=== PATIENT | female | born 1990 | race Caucasian/White ===

== ENCOUNTER 2016-10-17 20:06 | Emergency (ER) | payer MEDICAID | END 2016-10-17 22:00 | disposition left against medical advice (07) | LOC: D.ER 20:06 | DX: R10.9 Unspecified abdominal pain (principal) ==

== ENCOUNTER 2018-02-24 21:22 | Outpatient (CLI) | payer MEDICAID ==
[2018-02-24 22:48] LABS: COLOR YELLOW (YELLOW); UDS - AMPHET NEGATIVE QUAL (NEGATIVE); UDS - BARB NEGATIVE QUAL (NEGATIVE); UDS - BENZO NEGATIVE QUAL (NEGATIVE); UDS - COCAINE NEGATIVE QUAL (NEGATIVE); UDS - OPIATE NEGATIVE QUAL (NEGATIVE); UDS - PCP NEGATIVE QUAL (NEGATIVE); UDS - THC POSITIVE QUAL (NEGATIVE)
[2018-02-24 22:49] LABS: APPEARANCE CLEAR (CLEAR); BACTERIA FEW /hpf (NONE SEEN); BILIRUBIN NEGATIVE (NEGATIVE); EPITHELIAL CELLS 0-5 /hpf (0-5); GLUCOSE NEGATIVE (NEGATIVE); KETONE MODERATE mg/dL (NEGATIVE); NITRITE NEGATIVE (NEGATIVE); PROTEIN NEGATIVE (NEGATIVE); RED CELLS - URINE NONE SEEN /hpf (0-5); SPECIFIC GRAVITY 1.015 (1.005-1.020); UROBILINOGEN NORMAL (NORMAL); WHITE CELLS - URINE 0-5 /hpf (0-5)
[2018-02-26 18:30] VITALS: BMI 28.4
== END 2018-02-24 23:15 | disposition home or self-care (01) ==
LOC: D.LDO 21:22 → D.WS 23:11 → D.LDO 23:15
PROVIDERS: Obstetrics & Gynecology
DX: O26.893 Other specified pregnancy related conditions, third trimester (principal); Z3A.36 36 weeks gestation of pregnancy

== ENCOUNTER 2018-02-26 17:43 | Inpatient (IN) | payer MEDICAID ==
[~2018-02-26] VITALS: Ht 157.5 cm; Wt 70.3 kg
[2018-02-26 18:24] LABS: APPEARANCE CLEAR (CLEAR); BILIRUBIN NEGATIVE (NEGATIVE); COLOR YELLOW (YELLOW); GLUCOSE 50 mg/dL (NEGATIVE); KETONE SMALL mg/dL (NEGATIVE); NITRITE NEGATIVE (NEGATIVE); PROTEIN 2+ mg/dL (NEGATIVE); UROBILINOGEN NORMAL (NORMAL)
[2018-02-26 18:30] VITALS: BP 138/86; Ht 157.5 cm; Wt 70.3 kg
[2018-02-26 18:33] LABS: BACTERIA MANY /hpf (NONE SEEN); EPITHELIAL CELLS 0-5 /hpf (0-5); MUCUS <1+ /lpf (NONE SEEN)
[2018-02-26 18:34] LABS: AMORPHOUS SEDIMENT <1+ /lpf (NONE SEEN); HYALINE CAST 0-5 /lpf (NONE SEEN)
[2018-02-26 18:46] LABS: UDS - AMPHET NEGATIVE QUAL (NEGATIVE); UDS - BARB NEGATIVE QUAL (NEGATIVE); UDS - BENZO NEGATIVE QUAL (NEGATIVE); UDS - COCAINE NEGATIVE QUAL (NEGATIVE); UDS - OPIATE NEGATIVE QUAL (NEGATIVE); UDS - PCP NEGATIVE QUAL (NEGATIVE); UDS - THC POSITIVE QUAL (NEGATIVE)
[2018-02-26 19:22] LABS: HEMATOCRIT 26.7 % (36.0-48.0); HEMOGLOBIN 8.8 g/dL (12-16); MCH 30.7 pg (26.0-34.0); MEAN PLATELET VOLUME 9.9 fL (7.4-10.4); RBC 2.87 10x6/uL (4.00-5.40); RDW 13.8 % (11.5-14.5); WBC 14.7 10x3/uL (4.8-10.8)
[2018-02-27] VITALS (7 sets, daily range): BP systolic 115–146; BP diastolic 83–90
[2018-02-27 21:35] LABS: HEMATOCRIT 28.6 % (36.0-48.0); HEMOGLOBIN 9.3 g/dL (12-16); MCH 30.4 pg (26.0-34.0); MCHC 32.5 g/dL (31.0-37.0); MCV 93.5 fL (80.0-100.0); MEAN PLATELET VOLUME 9.7 fL (7.4-10.4); PLATELET COUNT 231 10x3/uL (130-400); RBC 3.06 10x6/uL (4.00-5.40); RDW 13.7 % (11.5-14.5)
[2018-02-27 22:54] LABS: EOSINOPHILS 3 % (0-7); LYMPHOCYTES 3 % (15-50); MONOCYTES 3 % (2-11); NEUTROPHILS 91 % (40-80); PLATELET ESTIMATE NORMAL
[2018-02-28 00:23] VITALS: BP 117/69
[2018-02-28 04:30] VITALS: BP 108/74
[2018-02-28 06:42] LABS: BASOPHILS 0.1 % (0-2); EOSINOPHILS 0.1 % (0-7); HEMATOCRIT 25.5 % (36.0-48.0); HEMOGLOBIN 8.7 g/dL (12-16); IMMATURE GRANULOCYTES 0.4 % (0-5); LYMPHOCYTES 9.7 % (15-50); MCH 31.6 pg (26.0-34.0); MCHC 34.1 g/dL (31.0-37.0); MCV 92.7 fL (80.0-100.0); MONOCYTES 9.9 % (2-11); NEUTROPHILS 79.8 % (40-80); PLATELET COUNT 223 10x3/uL (130-400); RBC 2.75 10x6/uL (4.00-5.40); WBC 20.1 10x3/uL (4.8-10.8)
[2018-02-28 07:27] LABS: RAPID PLASMA REAGIN Non Reactive (Non Reactive)
[2018-02-28 14:00] VITALS: BP 136/74
[2018-02-28 23:30] VITALS: BP 132/75
[2018-03-01 04:55] LABS: BASOPHILS 0.1 % (0-2); EOSINOPHILS 0.5 % (0-7); HEMOGLOBIN 7.6 g/dL (12-16); IMMATURE GRANULOCYTES 0.5 % (0-5); LYMPHOCYTES 13.2 % (15-50); MCH 30.5 pg (26.0-34.0); MCV 92.4 fL (80.0-100.0); MEAN PLATELET VOLUME 9.8 fL (7.4-10.4); MONOCYTES 10.5 % (2-11); NEUTROPHILS 75.2 % (40-80); PLATELET COUNT 246 10x3/uL (130-400); RBC 2.49 10x6/uL (4.00-5.40); RDW 14.1 % (11.5-14.5)
[2018-03-01 05:02] LABS: WBC 14.4 10x3/uL (4.8-10.8)
[2018-03-01 08:56] VITALS: BP 130/81
[2018-03-01 10:20] VITALS: BP 126/83
[2018-03-01 10:35] VITALS: BP 128/64
[2018-03-01 12:00] VITALS: BP 122/83
[2018-03-01 14:15] VITALS: BP 127/76
[2018-03-01] MEDS ORDERED: IBUPROFEN600 MG PO (16:17)
[2018-03-01] MEDS ORDERED: NORCO 10-325 TA1 TAB PO (16:17)
== END 2018-03-01 16:57 | disposition home or self-care (01) | DRG 786 ==
LOC: D.LDO 17:43 → D.LD 18:32 → D.WS 18:32 → D.LD 02-28 16:31
PROVIDERS: Obstetrics & Gynecology
PROC: 10D00Z1 Extraction of Products of Conception, Low, Open Approach (ICD-10-PCS; principal; 2018-02-27 15:30)
DX: O62.1 Secondary uterine inertia (principal); O60.14X0 Preterm labor third trimester with preterm delivery third trimester, not applicable or unspecified; Z3A.36 36 weeks gestation of pregnancy; Z37.0 Single live birth

== ENCOUNTER 2019-07-25 05:37 | Inpatient (IN) | payer MEDICAID ==
[2019-07-25] VITALS (16 sets, daily range): BP systolic 107–137; BP diastolic 61–83; Ht 157.5 cm; Wt 74.8 kg
[~2019-07-25] VITALS: Ht 157.5 cm; Wt 74.8 kg
[~2019-07-25 05:37] MED LIST: IBUPROFEN600 MG PO; NORCO 10-325 TA1 TAB PO
[2019-07-25 07:03] LABS: HEMATOCRIT 29.9 % (36.0-48.0); HEMOGLOBIN 9.4 g/dL (12-16); MCH 29.9 pg (26.0-34.0); MCHC 31.4 g/dL (31.0-37.0); MCV 95.2 fL (80.0-100.0); MEAN PLATELET VOLUME 10.7 fL (7.4-10.4); RBC 3.14 10x6/uL (4.00-5.40); RDW 14.8 % (11.5-14.5); WBC 13.1 10x3/uL (4.8-10.8)
[2019-07-25 07:40] LABS: UDS - AMPHET NEGATIVE QUAL (NEGATIVE); UDS - BARB NEGATIVE QUAL (NEGATIVE); UDS - BENZO NEGATIVE QUAL (NEGATIVE); UDS - COCAINE NEGATIVE QUAL (NEGATIVE); UDS - OPIATE NEGATIVE QUAL (NEGATIVE); UDS - PCP NEGATIVE QUAL (NEGATIVE); UDS - THC NEGATIVE QUAL (NEGATIVE)
[2019-07-25 07:48] LABS: BASOPHILS 0.2 % (0-2); EOSINOPHILS 0.9 % (0-7); HEMATOCRIT 29.6 % (36.0-48.0); HEMOGLOBIN 9.4 g/dL (12-16); IMMATURE GRANULOCYTES 0.6 % (0-5); LYMPHOCYTES 19.2 % (15-50); MCH 30.2 pg (26.0-34.0); MCHC 31.8 g/dL (31.0-37.0); MCV 95.2 fL (80.0-100.0); MEAN PLATELET VOLUME 10.5 fL (7.4-10.4); MONOCYTES 9.4 % (2-11); NEUTROPHILS 69.7 % (40-80); PLATELET COUNT 288 10x3/uL (130-400); RBC 3.11 10x6/uL (4.00-5.40); RDW 14.8 % (11.5-14.5); WBC 13.3 10x3/uL (4.8-10.8)
--- NOTE | 2019-07-25 09:40 | NUR ---
to room 1273 via bed from rr. awake and alert. denies pain.fundus uu/firm. mod lochia noted on pad- no clots. ice cap to incision.
--- NOTE | 2019-07-25 09:45 | NUR ---
DILAUDID LINE ERECTOR SETUP AND INSTRUCTED PT ON USE- 0.2MG Q10MIN.
--- NOTE | 2019-07-25 10:11 | NUR ---
FUNDUS UU/FIRM. SCANT LOCHIA NOTED ON PAD. IN MOTHERS ARMS.
--- NOTE | 2019-07-25 10:21 | NUR ---
SCD PUMP ON. PT TALKING WITH VISITORS. DENIES NEEDS. SMALL LOCHIA NOTED ON PAD.
--- NOTE | 2019-07-25 10:53 | NUR ---
SITTING UP IN BED HOLDING INFANT. NUMEROUS VISITORS AT BEDSIDE. SOME VISITORS LEFT ROOM. ABD SOFT. FUNDUS UU/FIRM. SM TO MOD LOCHIA NOTED ON PAD. NO CLOTS- PADS CHANGED. PT STATES THAT STARTING TO HURT AND USING SCHOOL LIBRARIAN NEEDED. MHR DECREASES TO 105 TO 110 WITH SOME VISITORS OUT OF ROOM.
--- NOTE | 2019-07-25 11:11 | NUR ---
TORADOL GIVEN FOR PAIN. DENIES OTHER NEEDS.
--- NOTE | 2019-07-25 11:46 | NUR ---
STATES PAIN IS BETTER POST TORADOL. FUNDUS UU/FIRM. SMALL LOCHIA NOTED ON PAD.
--- NOTE | 2019-07-25 12:37 | NUR ---
NOTED MHR CONT 120'S. FUNDUS UU/FIRM- SMALL LOCHIA NOTED ON PAD. STATES THAT SHE FEELS LIKE HR UP WITH PAIN. USING VOICE SYSTEMS ENGINEER NEEDED.
--- NOTE | 2019-07-25 12:44 | NUR ---
REPORT OF MHR TO DR ALLEN- NEW ORDERS RECEIVED.
--- NOTE | 2019-07-25 13:00 | NUR ---
LAB HERE FOR CBC. FUNDUS U1/FIRM. SM TO MOD LOCHIA NOTED ON PADS UNDERNEATH WITH SMALL CLOT X 1. PT RATES PAIN A 7 ON SCALE OF 0-10. Bubba ORTEGA RN ALSO IN ROOM. MANAGER PIPELINE BOLUS OF DILAUDID 0.4 MG GIVEN. PT EATING ICE CHIPS AND SIPPING ON LEMON TELIDA FANNIE.
[2019-07-25 13:06] LABS: BASOPHILS 0.1 % (0-2); EOSINOPHILS 0.3 % (0-7); HEMATOCRIT 28.1 % (36.0-48.0); IMMATURE GRANULOCYTES 0.6 % (0-5); LYMPHOCYTES 11.5 % (15-50); MCH 30.6 pg (26.0-34.0); MCV 95.6 fL (80.0-100.0); MEAN PLATELET VOLUME 10.3 fL (7.4-10.4); MONOCYTES 7.2 % (2-11); NEUTROPHILS 80.3 % (40-80); RBC 2.94 10x6/uL (4.00-5.40); RDW 14.7 % (11.5-14.5)
[2019-07-25 13:10] LABS: PLATELET COUNT 222 10x3/uL (130-400); WBC 16.5 10x3/uL (4.8-10.8)
--- NOTE | 2019-07-25 13:40 | NUR ---
CBC RESULTS RETURNED- HGB 9 AND HCT 28. EKG S TACH OTHERWISE NORMAL.
--- NOTE | 2019-07-25 15:00 | NUR ---
INFANT TO MOTHER BY THIS RN. BANDS VERIFIED TO MATCH. MOTHER IS AAOx3, LYING SUPINE IN BED. INFANT RESTING IN WAKEFUL STATE IN [place] AT BEDSIDE. SWADDLED WITH HAT ON, PACIFIER IN USE. NO DISTRESS NOTED. MOTHER'S CALL LIGHT IN REACH, DENIES NEEDS AT THIS TIME.
--- NOTE | 2019-07-25 15:10 | NUR ---
MOVING SELF ABOUT IN BED. INCENTIVE PAIGE USED. DENIES NEEDS.
--- NOTE | 2019-07-25 16:28 | NUR ---
SALES ORDER SPECIALIST SYRINGE CHANGED OUT. PT POSITIONS SELF TO RT SIDE. SCANT LOCHIA NOTED ON PAD.
--- NOTE | 2019-07-25 18:00 | NUR ---
THIS RN TO ROOM FOR PT CHECK. FF, ML, U/2. SCANT TO SMALL RUBRA LOCHIA NOTED TO PERIPAD, NO CLOTS. PERIPAD CHANGED. 80ML CLEAR YELLOW URINE NOTED IN HERNANDEZ UROMETER. PT C/O PAIN RATED 9/10 AT ABD INCISION. DRESSING NOTED TO HAVE SMALL AMOUNT RED DRAINAGE BENEATH IT AT INCISION SITE. DRESSING BORDERS MARKED WITH PEN. WILL ADMIN PRN TORADOL FOR PAIN, REFILL ICE PACK, AND GET ICE WATER PER PT REQUEST.
--- NOTE | 2019-07-25 18:13 | NUR ---
TORADOL ADMIN, NEW ICE PACK TO ABD, NEW ICE WATER GIVEN.
--- NOTE | 2019-07-25 18:22 | NUR ---
SITTING UP IN BED. MED GIVEN. DENIES NEEDS.
--- NOTE | 2019-07-25 18:36 | NUR ---
report of mhr,lab results ecg to dr welch in unit - new orders received.
--- NOTE | 2019-07-25 19:01 | NUR ---
REPORT TO PM SHIFT.
--- NOTE | 2019-07-25 19:22 | NUR ---
VSS. PT STATES PAIN IS 2/10 TO ABDOMINAL INCISION AREA. FUNDUS FIRM, MIDLINE, 2 BELOW, SCANT RUBRA LOCHIA NOTED ON EMILY PAD. PT'S FAMILY AT BEDSIDE, PT HOLDING INFANT BONDING. PT STATES HER NEEDS HAVE BEEN MET CURRENTLY, SHE WILL CALL OUT IF SHE NEEDS ANYTHING. BED IN LOWEST POSITION, SIDE RAILS UP X2, CALL LIGHT IN REACH.
--- NOTE | 2019-07-25 19:26 | NUR ---
SHIFT ASSESSMENT COMPLETED AT THIS TIME, PT SITTING UP IN BED HOLDING , HERNANDEZ DRAINING TO GRAVITY, IV CONTINUES WITH NS WITH 20U PITOCIN AT 125ML/HR. NO INFILTRATION NOTED, LR BOLUS STARTED AT THIS TIME PER MD ORDERS. LOW TRANSVERSE INCISION COVERED WITH DRESSING. TWO SMALL SPOT OF DRAINAGE NOTED AND MARKED. ICE PACK IN PLACE. TEACHING ON INCENTIVE SPIROMETER AND TURN,DEEP BREATHE AND COUGHING COMPLETED AND PT VERBALIZES UNDERSTANDING.
--- NOTE | 2019-07-25 19:55 | NUR ---
PATIENT REQUESTS A NURSERY NURSE TO LOOK AT HER BABY BECAUSE MOTHER STATES THAT THE BABY SNORTED A FEW TIMES WHEN SHE WAS SUCKING ON HER PACIFIER. THIS RN EXAMINED INFANT AND NO DISTRESS NOTED AT THIS TIME. TY MONK CALLED AND NOTIFIED
--- NOTE | 2019-07-25 20:38 | NUR ---
PT SITTING UP IN BED, DENIES NEEDS AT THIS TIME. SIGNIFICANT OTHER AT BEDSIDE FOR SUPPORT. WILL CONTINUE TO MONITOR
--- NOTE | 2019-07-25 21:30 | NUR ---
FRESH ICE PACK PROVIDED PER PT REQUEST. NO FURTHER NEEDS IDENTIFIED, SIGNIFICANT OTHER REMAINS AT BEDSIDE FOR SUPPORT. WILL CONTINUE TO MONITOR
--- NOTE | 2019-07-25 22:32 | NUR ---
PATIENTS HERNANDEZ CATHETER EMPTIED AT THIS TIME, SEE I+O FLOWSHEET
[2019-07-26] VITALS (11 sets, daily range): BP systolic 105–130; BP diastolic 63–78
--- NOTE | 2019-07-26 00:30 | NUR ---
PERICARE PERFORMED, SCANT RUBRA BLEEDING NOTED. FUNDUS FIRM U-1. PAD CHANGED. HERNANDEZ CATHETER REMAINS DRAINING TO GRAVITY. BED LOCKED IN LOW POSIITON, SIDE RAILS UPX2, CALL ROMERO AND TRAY TABLE IN REACH. WILL CONTINUE TO MONITOR.
--- NOTE | 2019-07-26 02:30 | NUR ---
PATIENT LYING IN BED ON HER RIGHT SIDE, NO NEEDS IDENTIFIED. HERNANDEZ REMAINS DRAINING TO GRAVITY. SEE I+O FLOWSHEET.
--- NOTE | 2019-07-26 06:30 | NUR ---
pericare performed, clean pad placed. acuña catheter emptied. see i+o flowsheet
--- NOTE | 2019-07-26 06:41 | NUR ---
toradol and zofran administered per pt request. see emar
[2019-07-26 06:49] LABS: BASOPHILS 0.2 % (0-2); EOSINOPHILS 0.7 % (0-7); HEMATOCRIT 25.1 % (36.0-48.0); HEMOGLOBIN 8.1 g/dL (12-16); IMMATURE GRANULOCYTES 0.3 % (0-5); LYMPHOCYTES 13.2 % (15-50); MCH 30.8 pg (26.0-34.0); MCHC 32.3 g/dL (31.0-37.0); MCV 95.4 fL (80.0-100.0); MONOCYTES 9.3 % (2-11); NEUTROPHILS 76.3 % (40-80); PLATELET COUNT 223 10x3/uL (130-400); RBC 2.63 10x6/uL (4.00-5.40); RDW 14.9 % (11.5-14.5)
[2019-07-26 06:54] LABS: WBC 10.7 10x3/uL (4.8-10.8)
--- NOTE | 2019-07-26 07:24 | NUR ---
assessment done. awake and alert. verbal responses appro to questions. iv of pitocin 20 units in 1000cc ns hanging and infusing into lt wrist at 125cc/hr. staff radiologist dilaudid infusing into this- settings 0.2mg q10min. o2 sat 88-94- encouraged to take deep breaths and up to 94. incentive jaiden used. fundus uu with scant lochia noted on pad. abd dressing intact. scds on. acuña cath with clear pale yellow urine. denies needs. states is hungry this morning.
[2019-07-26 07:52] LABS: RAPID PLASMA REAGIN Non Reactive (Non Reactive)
--- NOTE | 2019-07-26 07:58 | NUR ---
DR ALLEN IN UNIT- STATES HE WILL SEE HER SHORTLY. INFORMED OF AM CBC, O2 SAT. NEW ORDER RECEIVED.
--- NOTE | 2019-07-26 08:46 | NUR ---
sitting up in bed talking with . informed that dr araiza ordered unit prbc. pt denies questions.
--- NOTE | 2019-07-26 09:15 | NUR ---
DR ALLEN IN ROOM- POC DISCUSSED WITH PT. ASHLEE PIT D/C ALONG WITH SANDRA ROSADO. TONYA HUNG AT 50CC/HR FOR PRBC TRANSFUSION.
--- NOTE | 2019-07-26 09:32 | NUR ---
UNIT PRBC A+ DONOR # [id number] HUNG AND INFUSING THRU BLOOD TRANSFUSION TUBING- STARTED AT 75CC/HR AT THIS TIME.
--- NOTE | 2019-07-26 10:05 | NUR ---
NORCO GIVEN FOR CO HEADACHE AND INCISIONAL PAIN. RATES PAIN A 7 ON SCALE OF 0-10. NO S/S OF TRANSFUSION REACTION.
--- NOTE | 2019-07-26 10:06 | NUR ---
TRANSFUSION RATE INCREASED TO 125CC/HR.
--- NOTE | 2019-07-26 11:13 | NUR ---
PERICARE DONE AND PARTIAL LINEN CHANGE DONE. NO S/S OF TRANSFUSION REACTION NOTED.
--- NOTE | 2019-07-26 11:50 | NUR ---
UNIT PRBC FINISHED INFUSING LINE FLUSHED WITH NS.
--- NOTE | 2019-07-26 12:50 | NUR ---
ATE 100% OF REG DIET. STATES FEELS SO MUCH BETTER. IV CHANGED TO SALINE LOCK AND HERNANDEZ CATH REMOVED POST BULB DEFLATED WITH 1700CC URINE IN BAG.
--- NOTE | 2019-07-26 13:12 | NUR ---
STATES THAT HEADACHE IS GONE. REQUESTS MOTRIN FOR INCISIONAL PAIN. DENIES OTHER NEEDS.
--- NOTE | 2019-07-26 13:30 | NUR ---
STATES WANTS TO NAP- LIGHTS IN ROOM DIM.
[2019-07-26 14:15] LABS: BASOPHILS 0.1 % (0-2); HEMATOCRIT 26.2 % (36.0-48.0); HEMOGLOBIN 8.5 g/dL (12-16); IMMATURE GRANULOCYTES 0.4 % (0-5); LYMPHOCYTES 14.1 % (15-50); MCH 30.1 pg (26.0-34.0); MCHC 32.4 g/dL (31.0-37.0); MEAN PLATELET VOLUME 9.4 fL (7.4-10.4); MONOCYTES 6.8 % (2-11); NEUTROPHILS 77.6 % (40-80); PLATELET COUNT 203 10x3/uL (130-400); RBC 2.82 10x6/uL (4.00-5.40); RDW 15.9 % (11.5-14.5); WBC 10.5 10x3/uL (4.8-10.8)
[2019-07-26 14:22] LABS: MCV 92.9 fL (80.0-100.0)
--- NOTE | 2019-07-26 15:15 | NUR ---
AWAKE AND FEEDING INFANT.
--- NOTE | 2019-07-26 15:34 | NUR ---
RINGS CALL LIGHT STATES NEEDS TO VOID. AMBUULATORY TO BATHROOM- TOLERATED WELL. VOIDED 500CC- EMILY CARE DONE. RETURNS TO BED.
--- NOTE | 2019-07-26 15:36 | NUR ---
REQUESTING PAIN MEDICATION- CO PAIN AT INCISION WITH "GETTING UP" REQUESTS PAIN MEDICATION- RATES PAIN AN 8 ON SCALE OF 0-10.
--- NOTE | 2019-07-26 16:02 | NUR ---
C/O ABD AND INCISIONAL DISCOMFORT. 01/05. NORCO GIVEN PER ORDER AND PT REQUEST. ICE WATER PROVIDED. HOLDING INFANT IN ARMS. BED IN LOW POSITION WITH SRUP X2. CALL LIGHT AND PHONE WITHIN REACH.
--- NOTE | 2019-07-26 19:50 | NUR ---
REPORT GIVEN BY TY MILES
--- NOTE | 2019-07-26 19:50 | NUR ---
REPORT FROM TY MILES
--- NOTE | 2019-07-26 20:22 | NUR ---
PT REQUESTED PAIN MEDS. P0 MEDS GIVEN. PT IS LOVING ON HER BABY AT THIS TIME. DAD JUST ARRIVED.
--- NOTE | 2019-07-26 20:30 | NUR ---
ASSESSMENT COMPLETED. PT IS UP AND ABOUT IN ROOM. SHE WAS C/O OF PAIN SO SHE GOT A PERCOCET AT 2020 WELL A MOTRIN. SKIN IS WARM AND DRY. HEART SOUNDS ARE WNL. LUNGS CLEAR. BOWEL SOUNDS HEARD. fUNDUS IS FIRM AND LOCHIA IS SMALL. PT IS VOIDING WELL WITHOUT PROBLEM. BABY IS IN THE ROOM WELL PT .
--- NOTE | 2019-07-26 22:00 | NUR ---
PT DOING WELL WITH NO C/O.
[2019-07-27 00:03] VITALS: BP 126/81
--- NOTE | 2019-07-27 00:15 | NUR ---
PT C/O PAIN AT INCISION SITE.
--- NOTE | 2019-07-27 00:20 | NUR ---
PERCOCET WAS GIVEN PO FOR PAIN. PT STATES SHE IS GOING TO FEED THE BABY AND THEN GO TO SLEEP.
--- NOTE | 2019-07-27 02:00 | NUR ---
PT IS ASLEEP. BABY AND BOTH SLEEPING WELL.
--- NOTE | 2019-07-27 04:00 | NUR ---
PT AND FAMILY ARE SOUND ASLEEP. DID NOT WAKE FOR VS
--- NOTE | 2019-07-27 06:12 | NUR ---
PT C/O PAIN AT A 10 LEVEL. SHE WAS GIVEN PO PAIN MEDS.
[2019-07-27 07:35] VITALS: BP 140/67
--- NOTE | 2019-07-27 07:41 | NUR ---
AM ASSESSMENT COMPLETED, PRN IBUPROFEN GIVEN FOR CONTINUED C/O INCISIONAL PAIN RATED 8/10 0N NUMERIC PAIN SCALE. PT DOES COMPLAIN OF "STUFFY NOSE" THIS AM BUT RESOLVES SOMEWHAT WITH POSITION CHANGE TO SIT UPRIGHT DURING ASSESSMENT. REVIEWED PLAN OF CARE FOR THE DAY, QUESTIONS ANSWERED, CALL LIGHT PLACED WITHIN EASY REACH OF PT, IN ROLLING CRIB ADJACENT TO BED, NAD NOTED WITH OR PT. PROVIDED CUP OF ICE WATER PER REQUEST, NO OTHER NEEDS VOICED AT THIS TIME. WILL CONTINUE TO MONITOR.
--- NOTE | 2019-07-27 08:30 | NUR ---
PAIN REASSESSMENT COMPLETED, NAD NOTED, PAIN NOW 5-6 ON NUMERIC PAIN SCALE PER PT REPORT, PT SMILING AND AMBULATORY IN ROOM. CALL LIGHT ON BST ADJACENT TO PT BED. WILL MONITOR.
[2019-07-27] MEDS ORDERED: HYDROCODON-ACE1 EA10 PO (09:18)
[2019-07-27] MEDS ORDERED: MOTRIN600 MG PO (09:19)
--- NOTE | 2019-07-27 09:45 | NUR ---
DISCHARGE INSTRUCTIONS REVIEWED WITH PT, HANDOUTS PROVIDED FOR REVIEW AT HOME, QUESTIONS ANSWERED, PT STATES UNDERSTANDING OF ALL INFORMATION PROVIDED AT THIS TIME. WILL MONITOR.
--- NOTE | 2019-07-27 10:39 | NUR ---
PT C/O INCISIONAL PAIN RATED 8 OF 10 ON NUMERIC PAIN SCALE, REQUESTS PRN MED; SAME PROVIDED. SALINE LOCK TO LEFT WRIST DISCONTINUED, CATHETER TIP INTACT, PRESSURE DRESSING APPLIED USING GAUZE AND SILK TAPE. PT DENIES OTHER NEEDS OR CONCERNS AT THIS TIME. WILL MONITOR.
--- NOTE | 2019-07-27 11:15 | NUR ---
rounds completed, pain reassessment 4/10 on numeric pain scale, ambulatory in pt room. call light in easy reach.
--- NOTE | 2019-07-27 12:37 | NUR ---
patient discharged via wheelchair with infant secured in carrier to private auto with all personal belongings, nad noted at this time.
== END 2019-07-27 12:37 | disposition home or self-care (01) | DRG 788 ==
LOC: D.LD 05:37 → D.SDCHOLD 07:30 → D.LD 07-27 12:37
PROVIDERS: ADMIT Obstetrics & Gynecology; ATTEND Obstetrics & Gynecology
PROC: 10D00Z1 Extraction of Products of Conception, Low, Open Approach (ICD-10-PCS; principal; 2019-07-25 07:30)
DX: O32.1XX0 Maternal care for breech presentation, not applicable or unspecified (principal); Z3A.39 39 weeks gestation of pregnancy; Z37.0 Single live birth; O34.219 Maternal care for unspecified type scar from previous cesarean delivery; O90.9 Complication of the puerperium, unspecified; R00.0 Tachycardia, unspecified

== ENCOUNTER 2020-08-01 11:19 | Emergency (ER) | payer OTHER ==
[~2020-08-01] VITALS: Ht 157.5 cm; Wt 61.4 kg
[~2020-08-01 11:19] MED LIST changes: +HYDROCODON-ACE1 EA10 PO; +MOTRIN600 MG PO
[2020-08-01 11:21] VITALS: Ht 157.5 cm; Wt 61.4 kg
[2020-08-01] MEDS ORDERED: BIRTH CONTROL (11:22)
[2020-08-01 11:54] LABS: BASOPHILS 0.1 % (0-2); EOSINOPHILS 0.8 % (0-7); HEMATOCRIT 36.4 % (36.0-48.0); HEMOGLOBIN 12.1 g/dL (12-16); IMMATURE GRANULOCYTES 0.1 % (0-5); LYMPHOCYTE ABS# 1.73 10x3/uL (1.18-3.74); MCH 31.8 pg (26.0-34.0); MCHC 33.2 g/dL (31.0-37.0); MCV 95.5 fL (80.0-100.0); MEAN PLATELET VOLUME 9.4 fL (7.4-10.4); MONOCYTES 9.4 % (2-11); NEUTROPHIL ABS# 4.72 10x3/uL (1.56-6.13); NEUTROPHILS 65.6 % (40-80); PLATELET COUNT 229 10x3/uL (130-400); RBC 3.81 10x6/uL (4.00-5.40); RDW 13.5 % (11.5-14.5); WBC 7.2 10x3/uL (4.8-10.8)
[2020-08-01 12:06] LABS: INR 1.19 (0.85-1.17)
[2020-08-01 12:08] LABS: ANION GAP 11.6 mmol/L (8-16); CALCIUM 8.8 mg/dL (8.5-10.1); CARBON DIOXIDE 25.3 mmol/L (21.0-32.0); POTASSIUM - SERUM 3.9 mmol/L (3.5-5.1)
[2020-08-01 12:13] LABS: ALBUMIN 3.7 g/dL (3.4-5.0); BILIRUBIN - TOTAL 0.27 mg/dL (0.2-1.3); PROTEIN - SERUM 6.9 g/dL (6.4-8.2)
[2020-08-01] MEDS ORDERED: CYCLOBENZAPRINE10 MG PO (12:31)
[2020-08-01] MEDS ORDERED: ACETAMINOPHEN500 M1 PO (12:31)
[2020-08-01] MEDS ORDERED: IBUPROFEN800 MG PO (12:31)
[2020-08-01 12:47] VITALS: BP 123/72
== END 2020-08-01 12:48 | disposition home or self-care (01) ==
LOC: D.ER 11:19
PROVIDERS: Family Medicine
DX: S82.891A Other fracture of right lower leg, initial encounter for closed fracture (principal); K21.9 Gastro-esophageal reflux disease without esophagitis; W10.9XXA Fall (on) (from) unspecified stairs and steps, initial encounter; Y93.9 Activity, unspecified; Y92.9 Unspecified place or not applicable